=== PATIENT | female | born 1990 | race Caucasian/White ===

== ENCOUNTER 2017-05-06 19:00 | Emergency (ER) | payer SELFPAY | END 2017-05-06 19:02 | disposition left against medical advice (07) | LOC: MW.ED 19:00 | DX: Z53.21 Procedure and treatment not carried out due to patient leaving prior to being seen by health care provider (principal) ==

== ENCOUNTER 2017-05-16 18:22 | Emergency (ER) | payer OTHER, SELFPAY ==
[2017-05-16 18:44] VITALS: BP 103/69
[2017-05-16] MEDS ORDERED: LORazepam 2 MG/ML MDV IVPUSH ONE (19:26)
[2017-05-16] MEDS ORDERED: LORazepam 1 MG Tab PO ONE (19:42)
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
== END 2017-05-16 20:04 | disposition home or self-care (01) ==
LOC: MW.ED 18:22
DX: F41.9 Anxiety disorder, unspecified (principal); F32.9 Major depressive disorder, single episode, unspecified; F17.210 Nicotine dependence, cigarettes, uncomplicated; Z88.0 Allergy status to penicillin
CPT/HCPCS: 99283; A9270; 99282